=== PATIENT | male | born 1970 | race Caucasian/White ===

== ENCOUNTER 2017-01-02 01:28 | Emergency (ER) | payer BC ==
[~2017-01-02] VITALS: Ht 177.8 cm; Wt 125.0 kg
[~2017-01-02 01:28] MED LIST: HYDR-3533 PO; MOBI7.5T PO
[2017-01-02 01:30] VITALS: BP 137/67; PULSE 69; RESP 16; TEMP 98.2; O2SAT 98
--- NOTE | 2017-01-02 01:52 | PD ---
HPI Chief Complaint: Bleeding Time Seen by Provider: 01:48 Travel History International Travel<30 days: No Contact w/Intl Traveler<30days: No Traveled to known affect area: No History of Present Illness HPI 46-year-old white male presents to emergency department complaining of a bleeding varicosity to his left lower leg. This occurred prior to arrival. He states that he is scratching his leg with his right foot. He started having profuse bleeding. He put a large bulky dressing on and came to the ER. He denies any pain. No recent illness. He has not had a tetanus shot over 5 years. [facility] Past Medical History Narrative Medical Hypertension Cardiovascular Problems: Yes (HTN) Diminished Hearing: No Tetanus Vaccination: > 5 Years Past Surgical History Surgical History: No Previous Surgery Social History Alcohol Use: Yes (SOC) Tobacco Use: No Allergies-Medications (Allergen,Severity, Reaction): Coded Allergies: No Known Allergies (Unverified , 01/02/17) Reported Meds & Prescriptions Reported Meds & Active Scripts Active Mobic (Meloxicam) 7.5 Mg Tab 7.5 Mg PO DAILY Lortab 5 mg/325 mg (Hydrocodone/Acetaminophen 5 mg/325 mg) 1 Tab 1 Tab PO HS PRN Review of Systems Except as stated in HPI: all other systems reviewed are Neg Physical Exam Narrative GENERAL: This is a well-nourished, well-developed patient, in no apparent distress. SKIN: No rashes, ecchymoses or lesions. Warm and dry. HEAD: Atraumatic. Normocephalic. EYES: PERRL, EOMI, no discharge or injection. No scleral icterus. EARS: Clear NOSE: Nasal turbinates appear normal. THROAT: Mucosa pink and moist. Airway patent. NECK: Trachea midline. supple, moves head freely. LUNGS: Clear to auscultation. CV: Regular in rhythm. ABDOMEN: Soft nontender. EXT: No clubbing cyanosis or edema. Patient has a bleeding varicosity to left lower lateral leg. Data Data Last Documented VS Vital Signs Date Time Temp Pulse Resp B/P Pulse Ox O2 Delivery O2 Flow Rate FiO2 01/02/17 01:30 98.2 69 16 137/67 98 Room Air Orders Tetanus/Diphtheria Tox Adult (Tetanus/Di (01/02/17 02:00) Lidocai-Epi 1%-1:100,000 Inj (Xylocaine- (01/02/17 02:00) MDM Medical Decision Making Medical Screen Exam Complete: Yes Emergency Medical Condition: Yes Medical Record Reviewed: Yes Differential Diagnosis MDM: High Differential diagnoses: Fracture, sprain, strain, dislocation, contusion, neurovascular injury, bleeding varicosity Narrative Course Patient's bleeding varicosity ligated with sutures. Tetanus status updated. This is bleeding varicosity left lower leg Procedures Procedure Narrative LACERATION LOCATION: Left lower leg LENGTH: Not applicable NUMBER OF STITCHES/AYLA: 2 REPAIR: The area of the laceration was prepped with Betadine and sterilely draped. The laceration was infiltrated with 1% lidocaine with epinephrine. The wound was copiously irrigated and explored without evidence of foreign body , tendon injury or neurovascular injury. The wound was closed using 4-0 proline. This was a simple single layer repair. A sterile dressing was applied. The patient was advised to keep the dressing clean and dry. Patient tolerated the procedure well. Diagnosis Primary Impression: Bleeding from varicose veins of left lower extremity Patient Instructions: General Instructions Additional Instructions: Rest. Elevation. Keep clean and dry. Remove the dressing in 24 hours then perform local wound care with soap, water, Neosporin. Sutures out in 3-4 days. Med/Other Pt SpecificInfo: Wound Care Disposition: 01 DISCHARGE HOME Condition: Stable Justice Warren Jan 02, 2017 01:52
[2017-01-02] MEDS ORDERED: LIDOCAINE 1%/EPINEPHrine 1:100,000 SOLN 50 ML VIAL INFIL ONE (02:00)
[2017-01-02] MEDS ORDERED: TETANUS/DIPHTHERIA TOXOID ADULT 0.5 ML VIAL IM ONE (02:00)
== END 2017-01-02 02:35 | disposition home or self-care (01) ==
LOC: NEPB 01:28
DX: I83.892 Varicose veins of left lower extremity with other complications (principal); I10 Essential (primary) hypertension; Z23 Encounter for immunization
CPT/HCPCS: 12001; 90471; 90714